=== PATIENT | female | born 1950 | race Caucasian/White ===

== ENCOUNTER 2017-07-18 07:27 | Day surgery (SDC) | payer MEDICARE, BC ==
[2017-07-18] MEDS ORDERED: Lactated Ringers 1,000 ML IV SCH (07:30)
[2017-07-18] MEDS ORDERED: fentaNYL 100 MCG/2 ML SDV ONE (08:23)
[2017-07-18] MEDS ORDERED: Propofol 200 MG/20 ML SDV ONE (08:23)
[2017-07-18] MEDS ORDERED: Midazolam 1 MG/ML 2 ML SDV ONE (08:23)
--- NOTE | 2017-07-19 07:38 | OR ---
DATE OF PROCEDURE: 07/18/2017 PREOPERATIVE DIAGNOSIS: History of colon polyps. POSTOPERATIVE DIAGNOSES: Small right colon polyp, right and left-sided diverticulosis. PROCEDURE PERFORMED: Colonoscopy to the cecum with biopsy resection of small right colon polyp. SURGEON: Darrin Osman MD ANESTHESIA: IV anesthesia with monitored anesthesia care. INDICATION: This 67-year-old white female is referred for a colonoscopy. She has a history of colon polyps, also this is a welcome to Medicare colonoscopy. I counseled her for the colonoscopy with possible biopsy and/or polypectomy, including risks and alternatives, and she gave her informed consent to proceed. DESCRIPTION OF PROCEDURE: The patient was placed in the left lateral decubitus position. IV anesthesia was administered by the Anesthesia Service. Time-out was held. A rectal exam was performed, which was unremarkable. The flexible video Olympus colonoscope was introduced through her anus, up her rectum, and out her colon all the way to the cecum. Once the cecum was reached, the scope was slowly withdrawn, examining the mucosa throughout. In the right colon, we saw a small polyp, which was removed with the biopsy forceps. We additionally saw both right and left-sided diverticula. There was no bleeding or inflammation associated with any of them. The scope was retroflexed in the rectum with the distal rectum appearing unremarkable. The scope was straightened and removed. She tolerated the procedure well. Darrin Osman MD /[id number] MTDD
== END 2017-07-18 11:45 | disposition home or self-care (01) ==
LOC: JP.SDS 07:27
PROVIDERS: ATTEND Surgery
DX: Z12.11 Encounter for screening for malignant neoplasm of colon (principal); D12.2 Benign neoplasm of ascending colon; K57.30 Diverticulosis of large intestine without perforation or abscess without bleeding; Z86.010 Personal history of colon polyps; Z91.040 Latex allergy status
CPT/HCPCS: 45380; 88305; J1642; J2250; J2704; J3010; J7120

== ENCOUNTER 2019-03-16 14:06 | Emergency (ER) | payer MEDICARE, BC ==
[2019-03-16] MEDS ORDERED: Lactated Ringers 1,000 ML IV ONE (15:52)
[2019-03-16] MEDS ORDERED: Acetaminophen 1,000 MG in Premix Bag 1 BAG IV ONE (15:53)
--- NOTE | 2019-03-16 17:16 | EDM.PDOC ---
ED HPI GENERAL MEDICAL PROBLEM - General Chief Complaint: Fever Stated Complaint: NAUSEA AND SHAKES Time Seen by Provider: 03/16/19 16:00 - History of Present Illness INITIAL COMMENTS - FREE TEXT/NARRATIVE: 68-year-old with history of CLL who presents from the chemotherapy infusion clinic with concerns of fever, nausea and vomiting, diarrhea. she reports that for approximately the last day she has had nausea and nonbloody diarrhea. She's not had any associated abdominal pain. She was seen in infusion clinic today noted to be febrile, was unable to tolerate by mouth Tylenol, reports that she was sent here for IV acetaminophen. she denies any cough or shortness of breath. Her last chemotherapy was earlier this week, most recent dose was withheld due to low neutrophil count. Did receive a dose of Neupogen. She had not noted any significant fevers prior to presentation today. 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: Musculoskeletal History: Reports: Fracture Psychiatric History: Reports: Anxiety Hematologic History: Reports: Blood Transfusion(s), Other (See Below) Other Hematologic History: CLL Oncologic (Cancer) History: Reports: Leukemia Dermatologic History: Reports: None - Infectious Disease History Infectious Disease History: Reports: Chicken Pox, Measles, Shingles - Past Surgical History HEENT Surgical History: Reports: Adenoidectomy, Tonsillectomy GI Surgical History: Reports: Colonoscopy, EGD Female Surgical History: Reports: Tubal Ligation Musculoskeletal Surgical History: Reports: None Oncologic Surgical History: Reports: None Social & Family History - Family History Family Medical History: Noncontributory - Tobacco Use Smoking Status *Q: Never Smoker - Caffeine Use Caffeine Use: Reports: Soda ED ROS GENERAL - Review of Systems Review Of Systems: See Below Constitutional: Reports: No Symptoms HEENT: Reports: No Symptoms Respiratory: Reports: No Symptoms Cardiovascular: Reports: No Symptoms Endocrine: Reports: No Symptoms GI/Abdominal: Reports: Diarrhea, Nausea : Reports: No Symptoms Musculoskeletal: Reports: No Symptoms Skin: Reports: No Symptoms Neurological: Reports: No Symptoms Psychiatric: Reports: No Symptoms Hematologic/Lymphatic: Reports: No Symptoms Immunologic: Reports: No Symptoms ED EXAM, SEPSIS - Physical Exam Exam: See Below Exam Limited By: No Limitations General Appearance: Alert, No Apparent Distress Ears: Normal External Exam Nose: Normal Inspection Throat/Mouth: Normal Inspection Head: Atraumatic, Normocephalic Neck: Normal Inspection Respiratory/Chest: Lungs Clear Cardiovascular: Regular Rate, Rhythm GI/Abdominal Exam: Soft, Non-Tender, No Distention Back: Normal Inspection Extremities: Normal Inspection Neurological: Alert, Oriented Psychiatric: Normal Affect, Normal Mood Skin: Warm, Dry. No: Rash Course - Vital Signs Last Recorded V/S: Last Vital Signs Temp 38.3 C H 03/16/19 14:24 Pulse 85 03/16/19 14:24 Resp 14 03/16/19 14:24 BP 143/71 H 03/16/19 14:24 Pulse Ox 98 03/16/19 14:24 - Orders/Labs/Meds Orders: Active Orders 24 hr Category Date Time Status CULTURE BLOOD [BC] Urgent Lab 03/16/19 15:55 Received CULTURE BLOOD [BC] Urgent Lab 03/16/19 15:55 Received INFLUENZA A+B AG SCREEN [RM] Stat Lab 03/16/19 17:21 Ordered Blood Culture x2 Reflex Set [OM.PC] Urgent Oth 03/16/19 15:51 Ordered Labs: Laboratory Tests 03/16/19 03/16/19 03/16/19 Range/Units 15:55 15:55 15:56 WBC 39.4 H* (4.5-11.0) K/uL RBC 3.23 L (3.30-5.50) M/uL Hgb 9.6 L (12.0-15.0) g/dL Hct 31.5 L (36.0-48.0) % MCV 98 (80-98) fL MCH 30 (27-31) pg MCHC 31 L (32-36) % Plt Count 81 L (150-400) K/uL Add Manual Diff Yes Neutrophils % (Manual) Not Reportable Lymphocytes % (Manual) 98 H (24-44) % Monocytes % (Manual) 2 (2-6) % Polychromasia Sodium 139 L (140-148) mmol/L Potassium 3.8 (3.6-5.2) mmol/L Chloride 104 (100-108) mmol/L Carbon Dioxide 29 (21-32) mmol/L Anion Gap 9.8 (5.0-14.0) mmol/L BUN 16 (7-18) mg/dL Creatinine 0.9 (0.6-1.0) mg/dL Est Cr Clr Drug Dosing 57.56 mL/min Estimated GFR (MDRD) > 60 (>60) Glucose 130 H (74-106) mg/dL Calcium 8.7 (8.5-10.1) mg/dL Urine Color Yellow (YELLOW) Urine Appearance Clear (CLEAR) Urine pH 6.0 (5.0-8.0) Ur Specific [place] 1.020 (1.008-1.030) Urine Protein Trace H (NEGATIVE) mg/dL Urine Glucose (UA) Negative (NEGATIVE) mg/dL Urine Ketones Negative (NEGATIVE) mg/dL Urine Occult Blood Trace-lysed H (NEGATIVE) Urine Nitrite Negative (NEGATIVE) Urine Bilirubin Negative (NEGATIVE) Urine Urobilinogen 0.2 (0.2-1.0) EU/dL Ur Leukocyte Esterase Negative (NEGATIVE) Urine RBC 0-5 (0-5) Urine WBC Not seen (0-5) Ur Epithelial Cells Not seen Amorphous Sediment Not seen Urine Bacteria Rare Urine Mucus Rare Meds: Medications Discontinued Medications Generic Name Dose Route Start Last Admin Trade Name Freq PRN Reason Stop Dose Admin Acetaminophen 1,000 mg/ Premix 100 mls @ 400 mls/hr 03/16/19 15:53 03/16/19 16:39 IV 03/16/19 16:07 400 mls/hr NOW ONE Administration Lactated Ringer's 1,000 mls @ 999 mls/hr 03/16/19 15:52 03/16/19 16:39 Ringers, Lactated IV 03/16/19 16:52 999 mls/hr BOLUS ONE Administration - Re-Assessments/Exams Free Text/Narrative Re-Assessment/Exam: 68-year-old with history of CLL on chemotherapy currently presents with concerns of fever, nausea vomiting, diarrhea. On exam she has normal vitals, reassuring physical exam. She does endorse some rigors while in clinic earlier today. ANC WNL on review of labs from [facility]. Given her rigors and immunocompromised status we did draw blood cultures to follow. However she appears quite stable and is tolerating PO. The remainder of her labs are reassuring. I believe she is safe for discharge. She lives nearby and will return for worsening of symptoms. 03/16/19 18:14 Departure - Departure Time of Disposition: 18:30 Disposition: Home, Self-Care 01 Clinical Impression: Diarrhea Qualifiers: Diarrhea type: unspecified type Qualified Code(s): R19.7 - Diarrhea, unspecified Nausea & vomiting Qualifiers: Vomiting type: unspecified Vomiting Intractability: non-intractable Qualified Code(s): R11.2 - Nausea with vomiting, unspecified - Discharge Information Referrals: Marga Limon PA [Primary Care Provider] - Forms: ED Department Discharge Additional Instructions: Please take tylenol and your anti-nausea meds at home as needed. Return to the ER for worsening pain, high fevers, increased lethargy, or other symptoms which are concerning to you. - My Orders Last 24 Hours: My Active Orders 03/16/19 15:51 Blood Culture x2 Reflex Set [OM.PC] Urgent 03/16/19 15:55 CULTURE BLOOD [BC] Urgent CULTURE BLOOD [BC] Urgent 03/16/19 17:21 INFLUENZA A+B AG SCREEN [RM] Stat - Assessment/Plan Last 24 Hours: My Active Orders 03/16/19 15:51 Blood Culture x2 Reflex Set [OM.PC] Urgent 03/16/19 15:55 CULTURE BLOOD [BC] Urgent CULTURE BLOOD [BC] Urgent 03/16/19 17:21 INFLUENZA A+B AG SCREEN [RM] Stat
== END 2019-03-16 19:09 | disposition home or self-care (01) ==
LOC: JP.ED 14:06
DX: R19.7 Diarrhea, unspecified (principal); R11.2 Nausea with vomiting, unspecified; F41.9 Anxiety disorder, unspecified; Z91.040 Latex allergy status
CPT/HCPCS: 36415; 80048; 81001; 85025; 87040; 96361; 96374; 99283; J0131; J7120

== ENCOUNTER 2020-09-25 06:34 | Day surgery (SDC) | payer MEDICARE, BC ==
[2020-09-25] MEDS ORDERED: Midazolam 1 MG/ML 2 ML SDV ONE (07:23)
[2020-09-25] MEDS ORDERED: fentaNYL 100 MCG/2 ML SDV ONE (07:23)
[2020-09-25] MEDS ORDERED: Propofol 200 MG/20 ML SDV ONE (07:23)
[2020-09-25] MEDS ORDERED: Ondansetron 4 MG/2 ML SDV IVPUSH ONE (07:25)
[2020-09-25] MEDS ORDERED: Sodium Chloride 0.9% 1,000 ML IV SCH (07:30)
--- NOTE | 2020-09-25 15:06 | OR ---
DATE OF PROCEDURE: 09/25/2020 SURGEON: Tom Morrow MD PROCEDURE: Colonoscopy. FINDINGS: Diverticulosis, moderate, limited to sigmoid colon without evidence of diverticulitis or bleeding. COMPLICATIONS: None. MARINE TECHNICIAN: None. PREOPERATIVE DIAGNOSIS: Screening colonoscopy. POSTOPERATIVE DIAGNOSIS: Screening colonoscopy. RISKS: Risks, benefits, alternatives, and limitations including, but not limited to infection, bleeding, perforation, false positives and false negatives were explained to the patient who wished to proceed. PROCEDURE IN DETAIL: The patient was placed in left lateral decubitus position. Digital rectal exam was performed without abnormality. Scope was introduced and advanced atraumatically to the ileocecal valve. A photo was taken of this. Scope was brought back to the ascending, transverse, descending colon, and retroflexed. No evidence of old or new blood. No masses. No polyps. Diverticulosis described as moderate to mild, and mostly concentrated in the sigmoid colon without diverticulitis or bleeding. No abnormalities on retroflexion. Greater than 8 minutes was spent removing the scope. The prep was acceptable, approximately 90% of the luminal surface could be seen. The patient was recommended to have a repeat colonoscopy in approximately 10 years. Tom Morrow MD /[id number]
== END 2020-09-25 10:16 | disposition home or self-care (01) ==
LOC: JP.SDS 06:34
PROVIDERS: ATTEND Surgery
DX: Z12.11 Encounter for screening for malignant neoplasm of colon (principal); K57.30 Diverticulosis of large intestine without perforation or abscess without bleeding; Z91.040 Latex allergy status
CPT/HCPCS: J1642; J2250; J2405; J2704; J3010; J7030

== ENCOUNTER 2022-03-06 13:39 | Emergency (ER) | payer MEDICARE, BC ==
[2022-03-06] MEDS ORDERED: Lactated Ringers 1,000 ML IV SCH (14:45)
[2022-03-06] MEDS ORDERED: Albuterol/Ipratropium 3.0-0.5 MG/3 ML Neb Soln NEB ONE (14:54)
[2022-03-06] MEDS ORDERED: cefTRIAXone 2 GM in Sodium Chloride 0.9% 100 ML IV SCH (15:00)
[2022-03-06] MEDS ORDERED: Azithromycin 500 MG in Sodium Chloride 0.9% 250 ML IV SCH (15:15)
[2022-03-06 15:19] LABS: ESTIMATED GFR 30 mL/min (>60)
[2022-03-06] MEDS ORDERED: Acetaminophen 1,000 MG in Premix Bag 1 BAG IV ONE (15:39)
[2022-03-06] MEDS ORDERED: Etomidate 2 MG/ML 10 ML SDV IVPUSH ONE (15:44)
[2022-03-06] MEDS ORDERED: Rocuronium 50 MG/5 ML Vial IV ONE ×2 (15:44→18:48)
[2022-03-06] MEDS ORDERED: propofoL 100 ML IV SCH (15:45)
[2022-03-06 16:00] LABS: CORONAVIRUS COVID-19 NAA POSITIVE (NEGATIVE)
[2022-03-06] MEDS ORDERED: Norepinephrine 4 MG/4 ML SDV ONE (18:23)
[2022-03-06] MEDS ORDERED: Norepinephrine Bit/D5W Premix 4 MG in Premix Bag 1 BAG IV SCH ×2 (18:27→18:30)
[2022-03-06] MEDS ORDERED: Dextrose 5% in Water 250 ML ONE (18:27)
[2022-03-06] MEDS ORDERED: EPINEPHrine 1:10,000 1 MG/10 ML Syringe IVPUSH ONE ×2 (18:48→19:51)
[2022-03-06] MEDS ORDERED: Sodium Chloride 0.9% 250 ML IV SCH (20:00)
== END 2022-03-06 20:06 ==
LOC: JP.ED 13:39
DX: U07.1 COVID-19 (principal); A41.9 Sepsis, unspecified organism; R65.20 Severe sepsis without septic shock; J18.9 Pneumonia, unspecified organism; J96.01 Acute respiratory failure with hypoxia; Z91.040 Latex allergy status; Z79.899 Other long term (current) drug therapy
CPT/HCPCS: 0241U; 31500; 36415; 36600; 71045; 71250; 74018; 80053; 81001; 82803; 83605; 84145; 85025; 86140; 87040; 87077; 87186; 94640; 94660; 96365; 96367; 99285; C1751; J0131; J0171; J0456; J0696; J2704; J3490; J7050; J7120; J7620